=== PATIENT | female | born 2000 | race Two or more races ===

== ENCOUNTER 2025-01-02 11:58 | Emergency (ER) | payer MEDICAID, SELFPAY ==
[2025-01-02 12:15] VITALS: BP 120/77; PULSE 80; RESP 16; TEMP 37; O2SAT 98; BMI 32.5
--- NOTE | 2025-01-02 12:36 | XR_ITS ---
Examination: CT brain head without contrast. 2-D sagittal coronal reconstructions Date and time of exam:January 02, 2025 1413 hours INDICATIONS: Onset generalized head pain today CTDI: vol (mGy):46.1 DLP: (mGycm):888 Technique: Multiple CT axial sections of the brain have been obtained, 5 mm slice thickness. Contrast has not been administered. 2-D sagittal, coronal reconstructions have been obtained Low dose protocols were performed. One or more of the following dose reduction techniques were used; automated exposure control, adjustment of the mA and/or KV according to patient size, use of iterative reconstruction technique. Findings: No significant ventricular enlargement. Intra-axial or extra-axial hemorrhage density is not seen. No mass effect or midline shift Basal cisterns are not remarkable. Fourth ventricle is midline. Cranial vault intact. Impression: Negative for acute hemorrhage, mass effect or midline shift Acute right frontal right ethmoid sinusitis Advise clinical correlation follow-up accordingly
--- NOTE | 2025-01-02 15:22 | EDNOTE_ITS ---
<Statement entered by Ellyn Peter MD - 01/12/25 11:09> As co-signing physician, I was present and available for consult prn. I concur with the plan and care as documented by the midlevel provider. ED Headache RME/HPI General Chief Complaint: Headache Stated Complaint: HEADACHE Time Seen by Provider: 01/02/25 12:36 Arrival date/time: 01/02/25 11:58 24-year-old female presents to the Emergency Department with complaint of right- sided facial pain and headache and sinus pressure and congestion. Patient with no dizziness no nausea no vomiting Limitations: no limitations Related Data Home Medications ?Medication ?Instructions ?Recorded ?Confirmed PNV 84-awcp-WF-dss-fat 7 650 mg-50 1 ea PO QDAY 11/03/23 unit(AM)/30 mg-1 mg tablet,capsule Previous Rx's ?Medication ?Instructions ?Recorded albuterol sulfate 90 mcg/actuation 2 puff inhalation Q ID PRN 03/19/22 aerosol inhaler (Proventil HFA) shortness of breath or wheezing #8.5 grams docusate sodium 100 mg capsule 100 mg PO BID #60 caps 12/15/23 (Colace) ibuprofen 800 mg tablet 800 mg PO Q6H PRN pain #90 t abs 12/15/23 lanolin 50 % topical ointment 1 applic topical TID PRN skin 12/15/23 irritation #15 tubes ferrous sulfate 325 mg (65 mg 325 mg PO BID #60 tabs 0 12/16/23 iron) tablet (Miguel Angel-Time) amoxicillin 875 mg-potassium 1 tab PO BID 7 days #14 t abs 01/02/25 clavulanate 125 mg tablet ibuprofen 800 mg tablet 800 mg PO TID PRN pain #30 t abs 01/02/25 Allergies Allergy/AdvReac Type Severity Reaction Status Date / Time No Known Allergies Allergy Verified 01/02/25 12:00 Review of Systems Review of Systems Systems Reviewed: All systems reviewed, normal except as documented Constitutional Constitutional: Reports system reviewed and no additional complaints, except as documented, Denies fever(s) and Reports headache(s) Eyes Eyes: Reports system reviewed and no additional complaints, except as documented and Denies blurry vision ENT Ears, Nose, Mouth, and Throat: Reports system reviewed and no additional complaints, except as documented, Reports headache(s), Denies nasal congestion and Denies nasal discharge Cardiovascular Cardiovascular: Reports system reviewed and no additional complaints, except as documented, Denies chest pain and Denies dyspnea Respiratory Respiratory: Reports system reviewed and no additional complaints, except as documented, Denies chest congestion, Denies cough and Denies dyspnea Gastrointestinal Gastrointestinal: Reports system reviewed and no additional complaints, except as documented and Denies abdominal pain Integumentary/Breasts Skin/Breast: Reports system reviewed and no additional complaints, except as documented and Denies rash Neurologic Neurologic: Reports system reviewed and no additional complaints, except as documented, Reports as per HPI and Reports headache(s) Past Medical History Past Medical History NEUROLOGIC: Negative Neurological Disorders CARDIAC: Negative Cardiac Disorders or Congestive Heart Failure RESPIRATORY: Positive Asthma; Negative Chronic Obstructive Pulmonary Disease (COPD) GASTROINTESTINAL: Negative Gastrointestinal Disorders GENITOURINARY: Negative Genitourinary Disorders or Renal Disease REPRODUCTIVE: Positive Previous Pregnancies MUSCULOSKELETAL: Negative Musculoskeletal Disorders ENDOCRINE: Negative Endocrine Disorders, Diabetes Mellitus Type 1 or Diabetes Mellitus Type 2 HEMATOLOGIC: Negative Blood Disorders OTHER HISTORY: Positive Blood Transfusions; Negative Autoimmune Disease, Blood Transfusion Reaction, Anesthesia Reactions, Organ Transplant, Chemotherapy, MRSA, VRSA, Vancomycin-Resistant Enterococci, Clostridium Difficile or Cancer Family History FAMILY HISTORY: Negative Family Psychiatric Problems, Family Respiratory Disorders, Family Cardiac Disorders, Family Gastrointestinal Problems, Family Cancer, Family Surgery or Family Anesthesia Reaction Surgical History SURGICAL: Negative Endocrine Surgery, Ear Surgery, Abdominal Surgery, Nephrectomy, Joint Replacement, Neurologic Surgery, Mastectomy, Section or Organ Transplant Social History SMOKING STATUS: Never smoker SUBSTANCE USE: does not use ED Exam General Limitations: Present no limitations General appearance: Present alert and in no apparent distress Head Head exam: Present atraumatic, normocephalic and normal inspection Eye Eye exam: Present normal appearance, PERRL and EOMI; Absent conjunctival injection ENT ENT exam: Present normal exam, normal oropharynx and mucous membranes moist Neck Neck exam: Present normal inspection, full ROM and trachea midline Chest Chest inspection: Present normal inspection and symmetric chest wall rise Respiratory Respiratory exam: Present normal lung sounds bilaterally; Absent respiratory distress Cardiovascular Cardiovascular exam: Present regular rate, normal rhythm and normal heart sounds Abdominal Exam Abdominal exam: Present soft and normal bowel sounds; Absent distention, tenderness, guarding, rebound or rigidity Extremities Exam Extremities exam: Present normal inspection and full ROM Back Exam Back exam: Present normal inspection and full ROM Neurological Exam Neurological exam: Present alert, oriented X3, CN II-XII intact, normal gait and reflexes normal; Absent motor sensory deficit Psychiatric Psychiatric exam: Present normal affect and normal mood; Absent depressed or agitated Skin Skin exam: Present warm, dry and intact; Absent rash Course Quality Measures none Orders Category Date Time Status CT head/brain wo con Stat Exams 01/02/25 12:36 Completed Ketorolac Inj [Toradol Inj] Med 01/02/25 15:25 Discontinued 30 mg IM X1 ONE Vital Signs Vital signs: Vital Signs Temperature 98.6 F 01/02/25 12:15 Pulse Rate 80 01/02/25 12:15 Respiratory Rate 16 01/02/25 12:15 Blood Pressure 120/77 01/02/25 12:15 Pulse Oximetry (%) 98 01/02/25 12:15 Oxygen Delivery Method Room Air 01/02/25 12:15 O2 saturation 98% room air within normal limits Headache MDM Narrative MDM Narrative:: 24-year-old female presents to the Emergency Department with complaint of right- sided facial pain and headache and sinus pressure and congestion. Patient with no dizziness no nausea no vomiting On exam and based on symptomatology I suspect patient may have sinusitis Imaging obtained consistent with sinusitis no acute intracranial hemorrhage mass effect or midline shift No acute emergent findings noted on CT scan Patient discharged home in no distress to follow-up with primary care doctor in the next 24 to 48 hours and for any worsening symptoms to return to the ER immediately Patient data External records reviewed:: [facility] previous records Clinical information provided by:: patient Social determinants that could affect healthcare access:: none Patient has the following chronic illnesses:: None How is presenting disease/condition affected by chronic disease/condition?: no chronic disease Evaluation data The following diagnostics were reviewed and interpreted by me:: radiology exam(s) Lab and/or radiology exams considered but not ordered:: Radiology obtained Interpretation Summary: Reviewed by me Medications / Prescriptions Medications or Prescriptions considered but not ordered:: Given Medication administrations:: Medication Administration History Discontinued Medications Ketorolac Tromethamine (Ketorolac Inj 30 Mg/Ml Vial) 30 mg IM X1 ONE Stop: 01/02/25 15:26 Last Admin: 01/02/25 15:51 Dose: 30 mg Documented By: Given Consultations Consultation(s) initiated? (list below): No Diagnosis Differential diagnosis headache: migraine, tension headache and subarachnoid hemorrhage Most likely diagnosis given after review of the tests above:: Headache Admission Indicated Admission indicated?: not indicated Admission Request Was there a request for admission?: No Disposition Plan Disposition Plan: Discharge Discharge Attestation Discharge Attestation: The patient and all family members were given an opportunity to ask questions and understood the discharge instructions. Discharge instructions specifically effects, indications for sooner follow up or return to the emergency department, and the expected course of current diagnosis. Patient condition: Stable Discharge Plan Plan Patient Disposition: HOME (Self Care) Discharge Disposition comment: Stable Prescriptions/Referrals Prescriptions/Med Rec: New ibuprofen 800 mg tablet 800 mg PO TID PRN (Reason: pain) Qty: 30 0RF amoxicillin-pot clavulanate 875-125 mg tablet 1 tab PO BID 7 Days Qty: 14 0RF No Action albuterol sulfate [Proventil HFA] 90 mcg/actuation HFA aerosol inhaler 2 puff inhalation QID PRN (Reason: shortness of breath or wheezing) Qty: 8.5 0RF PNV 89-occk-GC-docusate-fat 7 650 mg-50 unit (AM)/30 mg-1 mg Tablet And Capsule, Sequential 1 ea PO QDAY ibuprofen 800 mg tablet 800 mg PO Q6H MDD 4 PRN (Reason: pain) Qty: 90 0RF docusate sodium [Colace] 100 mg capsule 100 mg PO BID Qty: 60 0RF lanolin 50 % ointment 1 applic topical TID PRN (Reason: skin irritation) Qty: 15 0RF ferrous sulfate [Miguel Angel-Time] 325 mg (65 mg iron) tablet 325 mg PO BID Qty: 60 0RF Referrals: Emani Dejesus PA-C [Primary Care Provider] - 01/03/25 Problem List Clinical Impression: Sinusitis, Headache Patient/Caregiver Discharge Instructions Education Materials: ED Sinusitis (Antibiotic Treatment) Additional Instructions: Please follow up with your primary care doctor in the next 24-48hrs for any worsening symptoms return here immediately Print Language: Pashto Stand Alone Forms: Malissa Award Info., Patient Portal Info Letter PA/DEANA Supervising Physician PA/DEANA Supervising Physician: dr childers
[2025-01-02] MEDS: KETOROLAC INJ 30 MG/ML VIAL IM (15:51)
== END 2025-01-02 15:55 | disposition home or self-care (01) ==
PROVIDERS: Emergency Provider Emergency Medicine; PCP Physician Assistant Medical
DX: J32.9 Chronic sinusitis, unspecified (principal)
CPT/HCPCS: 70450; 87400; 87811; 96372; 99283; J1885

== ENCOUNTER 2025-04-15 13:04 | Outpatient (AMB) | payer MEDICAID, SELFPAY ==
[2025-04-15 13:16] VITALS: BP 106/68; PULSE 85; RESP 18; TEMP 36.5; O2SAT 98; BMI 32.3
--- NOTE | 2025-04-15 13:16 | AMB.OBINITIA ---
Vital Signs 04/15/25 13:16 Height 1.6 m Height Method Stated Weight 82.724 kg Weight Measurement Method Standing Scale BMI 32.3 BP 106/68 Blood Pressure Source Automatic Cuff Blood Pressure Location Right Upper Arm Position Sitting Respiration 18 Pulse 85 Pulse Source Monitor Temp 97.7 F Temp Source Temporal Artery Scan Pulse Oximetry (%) 98 Oxygen Delivery Method Room Air Allergies/Home Meds Allergies & Medications Allergies No Known Allergies Allergy (Verified 04/15/25 13:17) Medication Reconciliation vitamin-ferrous fumarate 28 mg iron-folic acid 800 mcg tablet ( Vitamins with Minerals) 1 tab PO QDAY #60 tabs 04/15/25 [Rx] Intake Visit Data Collection New Patient or Established: Established Patient (seen at [facility] within 3 years) Reason for Visit:: OBI Seen by Clinical Staff ONLY (RN/MA): No Executive Vice President And Chief Financial Officer Required: No Do You Feel Safe at Home: Yes Authorities Contacted: N/A PCP or OBGYN visit in last 3 months: No Hx Now: Yes Are you currently on any form of Control: No Last menstrual period: 02/08/25 Pain Present Currently: No Pain Scale Used: [place]-Dejesus/Numerical Pain scale:: 0 Smoking Status Smoking Status: Never smoker Immunizations Flu Vaccine in the Last 12 Months: No Flu Vaccine Exclusion Criteria: No Exclusion Criteria Questionnaires Covid-19 Vaccine Questionnaire Has patient been vacinated for Covid-19 Have you been vacinated for Covid-19: No PHQ-9 PHQ-2 Over the last 2 weeks, how often have you been bothered by any of the following problems? 1. Little interest or pleasure in doing things: not at all 2. Feeling down, depressed, or hopeless: not at all Total score: 0 PHQ-9 3. Trouble falling or staying asleep, or sleeping too much: Not at all 4. Feeling tired or having little energy: Not at all 5. Poor appetite or overeating: Not at all 6. Feeling bad about yourself - or that you are a failure or have let yourself or your family down: Not at all 7. Trouble concentrating on things, such as reading the newspaper or watching television: Not at all 8. Moving or speaking so slowly that other people could have noticed? - Or the opposite - being so fidgety or restless that you have been moving around a lot more than usual: not at all 9. Thoughts that you would be better off or of hurting yourself in some way: Not at all Total score: 0 If you checked off any problems, how difficult have these problems made it for you to do your work, take care of things at home, or get along with other people?: not difficult at all Source: Developed by Drs. Perfecto Hughes, Karlee Covington, Jignesh Shrestha and colleagues, with an educational bashir from [employer]. Depression screen completed yes Social History Living Situation History Marital Status: Lives With: Family Housing: House Tobacco History Smoking Status: Never smoker Second Hand Smoke Exposure: No Alcohol History Alcohol Intake: Never Domestic Abuse History Do You Feel Safe at Home: Yes History of Present Illness HPI Narrative 24-year-old 6 para 5 for OBI. Patient's last. February 08, 2025. Patient reports she is breast-feeding and has unsure dates. EDC by that LMP would be November 12, 2025. She has increased cramping but no leaking or bleeding. Denies social habits. Denies surgery. Denies chronic illness. Denies nausea and vomiting. Partner and patient are happy about the . BRANCH MANAGER: Past Medical History Past Medical History: No Hx Neurological Disorders, No Hx Cardiac Disorders, No Hx Cancer, No Hx Blood Disorders, No Hx Gastrointestinal Disorders, No Hx Renal Disease, No Hx Diabetes Mellitus Type 1 and No Hx Diabetes Mellitus Type 2 OB Initial Visit OB Flowsheet OB Flowsheet Initial Weight: Not Recorded Date <del>?</del> EGA Weight BP Alb Glu CTX Pres Fundal ht FHR Mov Dilation Station Effacement Hx Notes Visit Note 04/15/25 <del>?</del> 9w 3d 82.724 kg 106/68 absent unknown 10 160 absent 24-year-old 6 para 5 for OBI. Patient's last period February 08, 2025. Patient has poor dates who is breast-feeding. But based on that LMP she is due November 12, 2025. She denies any bleeding with the but she has some cramps no other complaints. Denies social habits. Denies surgery. Denies chronic illness. Her biggest baby weighed 7 pounds 6 at term Schedule ultrasound for dates at [facility]. Discussed SAB precautions. OB panel with NIPT and carrier screens. Ordered prenatals. Return in 4 weeks OB check Menstrual History Menstrual reliability: definite Flow: normal Menstrual regularity: regular Monthly: Yes Age at menarche: 13 On control pills at conception: No OB History : 6 Para: 5 # of Living Children: 5 Delivery History 1st : Child's name: JOSH LOUISE date: 01/01/16 sex: male Gestational age at delivery (weeks): 41 Delivery type: vaginal History of depression before or after : No 2nd : Child's name: ANN-MARIE LOUISE date: 01/11/20 sex: female Gestational age at delivery (weeks): 39 Delivery type: vaginal History of depression before or after : No 3rd : Child's name: SAEID LOUISE date: 01/11/21 sex: male Gestational age at delivery (weeks): 38 Delivery type: vaginal History of depression before or after : No 4th : Child's name: ROHAN LOUISE date: 09/25/22 sex: female Gestational age at delivery (weeks): 37 Delivery type: vaginal History of depression before or after : No 5th : Child's name: JULY ASPEN date: 12/15/23 sex: female Gestational age at delivery (weeks): 38 Delivery type: vaginal History of depression before or after : Yes Infection History & Risk Evaluation History of STDs: none Genetic Screening & History Genetic Screening/Teratology Counseling - Includes patient, baby's father, or anyone in either family with: 1. Patient's age 35 years or older as of estimated date of delivery: No 2. Thalassemia ([place], [place], Mediterranean, or Background); MCV less than 80: No 3. Neural Tube Defect (Meningomyelocele, Spina Bifida, or Anencephaly): No 4. Congenital Heart Defect: No 5. Down Syndrome: No 6. Anthony-Sachs (Ashkenazi Cheondoism, Cajun, Chadian Lao): No 7. Vicki Disease (Ashkenazi Cheondoism): No 8. Familial Dysautonomia (Ashkenazi Cheondoism): No 9. Sickle Cell Disease or Trait (): No 10. Hemophilia or other blood disorders: No 11. Muscular Dystrophy: No 12. Cystic Fibrosis: No 13. Bailey's Chorea: No 14. Mental Retardation/Autism: No 15. Other inherited genetic or chromosomal disorder: No 16. Maternal Metabolic Disorder (EG,TYPE 1 Diabetes, PKU): No 17. Patient or baby's father had a child with defects not listed above: No 18. Recurrent loss or a stillbirth: No 19. Medications (including supplements, vitamins, herbs or otc drugs)/illicit/recreational drugs/alcohol since last menstrual period: No 20. Any other: No Infection History Other (see comments) Source: [employer] Review of Systems Review of Systems Systems Reviewed: All systems reviewed, normal except as documented Exam General Limitations: no limitations General Appearance: alert, in no apparent distress, comfortable, cooperative, healthy appearing, well developed and well groomed ENT ENT exam: Present normal exam, normal oropharynx and mucous membranes moist Neck Neck exam: Present normal inspection, full ROM and trachea midline Chest Chest inspection: Present normal inspection and symmetric chest wall rise Resp Respiratory exam: Present normal lung sounds bilaterally Card Cardiovascular exam: Present regular rate, normal rhythm and normal heart sounds Abdominal Abdominal exam: Present soft and normal bowel sounds Psych Psychiatric exam: Present normal affect and normal mood Office Procedures OBC Clinic LOC & Office Proc's Nursing/Assessment Patient Status: Established Patient OB Clinic Nursing Assessment: Medication Reconciliation, Update PMH in EMR and Vital Signs OB Clinic Coordination of Care: Complex Care and Chronic Disease 1-5, Education Complex Pt/Fam, Consent,records obtained, informed consent, Lab and Imaging orders, Results/Orders obtained and Staff clarify orders Special Needs: Heart tones Established Patient Charge Established Patient Point Assignment: 140 Established Patient Point Charge: EP Level 4 (120-155) Assessment & Plan Diagnosis / Problem List (1) Encounter for supervision of high risk in first trimester, antepartum: Status: Acute Plan OB panel today with NIPT, carrier screens. Schedule ultrasound at [facility] for dates. Discussed SAB precautions. Increase fluids and rest is much as possible. Discussed ER precautions and danger signs. Return in 4 weeks OB check. I ordered prenatals to [facility] Additional Plan Follow Up: 4 Weeks (obc)
== END 2025-04-15 13:45 | disposition home or self-care (01) ==
LOC: HODSOBC 13:04
PROVIDERS: PCP Physician Assistant Medical; Referring Provider Physician Assistant Medical; Supervising Provider Advanced Practice Midwife; Visit Provider Advanced Practice Midwife
DX: O09.41 Supervision of pregnancy with grand multiparity, first trimester (principal); O09.891 Supervision of other high risk pregnancies, first trimester; O26.841 Uterine size-date discrepancy, first trimester; Z3A.09 9 weeks gestation of pregnancy
CPT/HCPCS: 99214; G0463